=== PATIENT | male | born 1935 | race Caucasian/White ===

== ENCOUNTER 2016-11-26 11:02 | Inpatient (IN) | payer OTHER, BC ==
[~2016-11-26] VITALS: Ht 182.9 cm; Wt 99.8 kg
--- NOTE | ~2016-11-26 | EKG ---
[place] [address] [facility] [place] [address] ELECTROCARDIOGRAM REPORT Name: TORIE ETIENNE Room #: 213-P ADM IN M.R.#: [id number] Admission: 11/26/16 Attend Phys: Sheryl Trejo MD Discharge: Date of : 34 Report #: [id number] THIS REPORT FOR: //name// [facility] ED Test Date: 2016-11-26 Test Time: 11:05:39 Pat Name: TORIE ETIENNE Department: Room: 213 Gender: M Solution Analyst: JOSE : 1935 Requested By: Myesha Melendez Order Number: [id number] MD: Navneet Hernandez Measurements Intervals [place] Rate: 95 P: -27 KS: 188 QRS: -46 QRSD: 130 T: 163 QT: 440 QTc: 553 Interpretive Statements Sinus rhythm Paired ventricular premature complexes IVCD LVH with secondary repolarization abnormality Septal CT No previous ECG available for comparison Electronically Signed On 11-27-2016 11:04:02 CDT by Navneet Hernandez [email or web address] <ELECTRONICALLY SIGNED> By: Navneet Hernandez MD 11/27/16 1104 1105 1105 MD IVY Mckeon
--- NOTE | ~2016-11-26 | 2DMMODE ---
[facility] [address] [employer] [facility] [employer] [place] [address] 2 D/M-MODE ECHOCARDIOGRAM Name: TORIE ETIENNE Room #: 213-P [facility] IN ..#: [id number] Admission: 11/26/16 Attend Phys: Sheryl Trejo, Discharge: Date of : 34 Date of Service: 11/28/16 1428 Report #: [id number] THIS REPORT FOR: //name// APPROVED REPORT Study performed: 11/28/2016 13:11:46 EXAM: Comprehensive 2D, Doppler, and color-flow Echocardiogram Patient Location: Bedside Room #: 213 Blood Pressure: 110/69 mmHg HR: 79 bpm Other Information Study Quality: Adequate Indications Aortic Valve Disease Dyspnea CAD Hypertension/HDD 2D Dimensions RVDd: 43.95 mm LVEF(%): 26.78 (>50%) IVSd: 14.80 (7-11mm) LVOT Diam: 25.09 (18-24mm) LVDd: 56.50 mm PWd: 15.04 (7-11mm) Ascending Aorta: 29.28 mm LVDs: 49.37 (25-40mm) IVC: 27.00 mm Aortic Root: 30.04 mm Sosa's LVEF: 26.78 % Volumes Left Atrial Volume (Systole) Single Plane 4CH: 117.02 mL Single Plane 2CH: 139.59 mL LA ESV Index: 65.00 mL/m2 Aortic Valve AoV Peak Sunil.: 3.73 m/s AO Peak Gr.: 55.74 mmHg LV Max P.02 mmHg AO Mean Gr.: 35.98 mmHg LV Mean P.42 mmHg LV Max: 0.71 m/s AO V2 VTI: 908.40 mm LV Mean: 0.57 m/s MARGARET (VTI): 1.05 cm2 LV V1 VTI: 193.05 mm [facility] [employer] [place] [address] 2 D/M-MODE ECHOCARDIOGRAM Name: TORIE ETIENNE Room #: 213-P [facility]#: [id number] Admission: 11/26/16 Attend Phys: Sheryl Trejo, Discharge: Date of : 34 Date of Service: 11/28/16 1428 Report #: [id number] SV (LVOT): 95.43 mL Mitral Valve E/A Ratio: 1.2 MV Decel. Time: 181.86 ms MV E Max Sunil.: 1.31 m/s MV A Sunil.: 1.07 m/s MV PHT: 52.74 ms Pulmonary Valve PV Peak Sunil.: 1.31 m/s PV Peak Gr.: 6.84 mmHg Pulmonary Vein P Vein S: 54.4 m/s P Vein D: 29.2 m/s P Vein A Dur.: 17.3 m/s PVa Duration: 83 Tricuspid Valve TR Peak Sunil.: 3.29 m/s RAP Estimate: 10.00 mmHg TR Peak Gr.: 43.26 mmHg Left Ventricle The left ventricle is normal size. There is hypokinesis in the apical septal wall. There is hypokinesis in the apex wall. There is hypokinesis in the apical inferior wall. Mild to moderate concentric left ventricular hypertrophy. Left ventricular systolic function is mildly decreased. LVEF is 40-45%. Diastolic function cannot be accuratelt assessed. Right Ventricle The right ventricle is normal size. The right ventricular systolic function is normal. Atria Left atrium is dilated. Right atrium is dilated. Aortic Valve Aortic valve is calcified. No aortic regurgitation is present. Moderate aortic stenosis. Mitral Valve The mitral valve is normal in structure. Mild mitral regurgitation. No evidence of mitral valve stenosis. Tricuspid Valve The tricuspid valve is normal in structure. There is mild tricuspid [address] [place] [address] 2 D/M-MODE ECHOCARDIOGRAM Name: TORIE ETIENNE Room #: 213-P [facility] IN [facility]#: [id number] Admission: 11/26/16 Attend Phys: Sheryl Trejo, Discharge: Date of : 34 Date of Service: 11/28/16 1428 Report #: [id number] regurgitation. The right atrial pressure is estimated at 10 mmHg. There is moderate pulmonary hypertension. The estimated PAP was 53 mmHg. Pulmonic Valve The pulmonary valve is normal in structure. There is no pulmonic valvular regurgitation. Great Vessels The aortic root is normal in size. The inferior vena cava is dilated with a decrease in inspiratory collapse. Pericardium There is no pericardial effusion. <Conclusion> The left ventricle is normal size. There is hypokinesis in the apical septal wall. There is hypokinesis in the apex wall. There is hypokinesis in the apical inferior wall. LVEF is 40-45%. Left atrium is dilated. Right atrium is dilated. Aortic valve is calcified. No aortic regurgitation is present. Moderate aortic stenosis. The mitral valve is normal in structure. Mild mitral regurgitation. There is mild tricuspid regurgitation. The right atrial pressure is estimated at 10 mmHg. There is moderate pulmonary hypertension. The estimated PAP was 53 mmHg. The inferior vena cava is dilated with a decrease in inspiratory collapse. <ELECTRONICALLY SIGNED> By: Jonatan Mcdonald MD 11/28/16 1428 1428 1428 Jonatan Mcdonald MD /INF
--- NOTE | ~2016-11-26 | HC ---
[facility] [place] [address] CONSULTATION Name: TORIE ETIENNE Room #: 213-P [facility] IN .R.#: [id number] Admission: 11/26/16 Attend Phys: Sheryl Trejo MD Discharge: Date of : 34 Report #: [id number] THIS REPORT FOR: //name// CC: Sheryl Trejo [facility] DATE OF SERVICE: 11/26/2016 Cardiology Consultation INDICATION: Shortness of air. HISTORY OF PRESENT ILLNESS: This is an 81-year-old gentleman presenting with increasing shortness of breath over the past few days. He was recently hospitalized for about a week at [facility] for a GI bleed and shortness of breath. The patient reports having a cardiac catheterization performed, did not undergo a stent placement. He did receive blood transfusions, but they did not find the cause of his GI bleed. He offers no complaints of angina, fever or diarrhea. He has noticed increased swelling of his lower extremities. PAST MEDICAL HISTORY: Remote history of CABG in 1998. Reports having cardiac catheterization at [facility], no stent was placed. Has a history of valvular heart disease. Follows with Dr. Dominick Hamlin at [facility]. History of hypertension, hypercholesterolemia, edema, GI bleed, PVD. ALLERGIES: PENICILLIN AND VICODIN. CURRENT MEDICATIONS: Include Lipitor 80 mg, Cartia 240 mg, finasteride, levothyroxine, Plavix 75 mg daily, ____ terazosin, cilostazol, Zetia and Nexium. SOCIAL HISTORY: Denies tobacco use. FAMILY HISTORY: Negative for premature CAD. REVIEW OF SYSTEMS: A full 10-point review of systems performed. Only the pertinent positives and negatives are described in the HPI. PHYSICAL EXAMINATION: VITAL SIGNS: Blood pressure is 110/70, heart rate is 80 beats per minute. GENERAL APPEARANCE: This is an overweight male in mild respiratory distress. HEAD AND EYES: Normocephalic. Sclerae are anicteric. ENT: Oral mucosa moist. NECK: Supple. LUNGS: Bibasilar crackles. [facility] [address] [place] [address] CONSULTATION Name: TORIE ETIENNE Room #: 213-P ADM IN ..#: [id number] Admission: 11/26/16 Attend Phys: Sheryl Trejo MD Discharge: Date of : 34 Report #: [id number] CARDIAC: Regular rate and rhythm, 2/6 systolic murmur. ABDOMEN: Protuberant, soft, nontender. EXTREMITIES: No major joint deformities, 3+ bilateral lower extremity edema. ECG reveals sinus rhythm, anteroseptal WA, LVH with repolarization abnormalities. LABORATORY VALUES: White count is 8.7, hemoglobin is 8.2. Sodium is 138, creatinine is 1.2. First troponin is positive at 2.08. ProBNP is elevated at 27,000. ASSESSMENT AND PLAN: 1. 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 We will need an echo to evaluate. Would start the patient on IV diuresis. Strict I's and O's should be maintained. 2. CAD/CABG/non-ST elevation WA, the troponin elevation may be a result of hypoxia/heart failure, would like to obtain the results of the cardiac catheterization apparently performed at [facility]. 3. Gastrointestinal bleed, hemoglobin is stable at this time. 4. ____, continue with medications. 5. Hypercholesterolemia, continue with statins. 6. Edema, continue with diuresis. I did discuss to the patient and his the importance of maintaining a low salt diet. Thank you for allowing me to participate in the care of your patient. <ELECTRONICALLY SIGNED> By: Navneet Hernandez MD 11/28/16 0739 1156 2257 Navneet Hernandez MD /nt
--- NOTE | ~2016-11-26 | HC ---
[facility] [place] [address] CONSULTATION Name: TORIE ETIENNE Room #: 213-P ADM IN M.R.#: [id number] Admission: 11/26/16 Attend Phys: Sheryl Trejo MD Discharge: Date of : 34 Report #: [id number] THIS REPORT FOR: //name// CC: Sheryl Rehman [facility] DO Navneet Hernandez MD DATE OF SERVICE: 11/27/2016 HISTORY OF PRESENT ILLNESS: The patient is an 81-year-old male with multiple medical problems including history of coronary artery disease status post CABG, valvular heart disease and hypertension. He apparently was [facility] [place] He is a fair historian. His family is present to help with his history today. It appears he received at least 4-5 units of packed cells during that hospitalization. He did not undergo an EGD or colonoscopy and in fact has never had one in the past apparently due to him being too unstable at the time. He does report dark stools He denies any abdominal pain. His weight has been stable. There is no family history of colon cancer. He has been on Plavix, which has now been held. He was on Nexium apparently at home as well as Carafate. He does have a history of congestive heart failure as well. His hemoglobin on admission was 8.2 yesterday. Today it is 7.8. He is currently on 3 liters of nasal canula oxygen. He is usually not on oxygen at home. He does report some shortness of breath, but this is improving at this time as well as his lower extremity edema. PAST MEDICAL AND SURGICAL HISTORY: Coronary artery disease, congestive heart failure, previous history of ND, coronary artery bypass, valvular heart disease, history of sleep apnea, hypertension, GI bleed requiring blood transfusions recently, previous fracture of his right leg, history of bronchitis and sleep apnea. MEDICATIONS ON ADMISSION: Diltiazem, Hytrin, atorvastatin, finasteride, Synthroid, Plavix, metoprolol, Zetia, ____ Nexium and Carafate. ALLERGIES: To PENICILLIN. REVIEW OF SYSTEMS: As per HPI. FAMILY HISTORY: Negative for colon cancer. Again, the patient has never had a colonoscopy before. SOCIAL HISTORY: Used to smoke cigarettes but denies any tobacco or alcohol use at this time. [facility] [address] [place] [address] CONSULTATION Name: TORIE ETIENNE Room #: 213-P [facility] IN [facility]#: [id number] Admission: 11/26/16 Attend Phys: Sheryl Trejo MD Discharge: Date of : 34 Report #: [id number] PHYSICAL EXAMINATION: VITAL SIGNS: Temperature is 97.9, pulse 78, blood pressure is 102/73 and respiratory rate is 18. GENERAL: He is alert and oriented x 3, in no acute distress. HEENT: Sclerae nonicteric. Oropharynx clear. NECK: Supple. CARDIOVASCULAR: Systolic ejection murmur noted, regular rhythm. CHEST: With decreased breath sounds bilaterally. ABDOMEN: Soft. He is nontender and nondistended, normoactive bowel sounds. EXTREMITIES: Pitting edema +1 in the lower extremities bilaterally. LABORATORY DATA: Sodium 140, potassium 3.3, chloride 103, bicarbonate 25, BUN 32, creatinine is 1.0, AST 25, total bilirubin 0.3, alkaline phosphatase 113, ALT is 38, total protein 5.3, albumin 2.7. Troponin 2.08. BNP is 27,599. WBC is 8.0, hemoglobin 7.8, MCV 85.8, platelet count 166. Chest x-ray yesterday left basilar infiltrate and small effusion. Cardiomegaly with mild edema. ASSESSMENT AND PLAN: Anemia, recent history of gastrointestinal bleed requiring transfusions at different facility. Would recommend proceeding with an EGD and possible colonoscopy in the near future; however, obviously the patient has multiple medical problems. He is currently on 3 liters. He is high risk for sedation at this time. I had a long discussion with the patient and his family. I would recommend considering endoscopy in the near future if his pulmonary function improves and if cardiology agrees with procedures. In the meantime, continue to hold anticoagulation therapy, continue to monitor hemoglobin closely. We will discontinue his Pepcid that he is on currently and start Protonix b.i.d. Thank you for allowing me to participate in his care. <ELECTRONICALLY SIGNED> By: Mac Velazquez MD 11/28/16 1132 1500 [id number] Mac Velazquez MD /nt
--- NOTE | ~2016-11-26 | EKG ---
[address] [place] [address] ELECTROCARDIOGRAM REPORT Name: TORIE ETIENNE Room #: 213-[facility] IN M.R.#: [id number] Admission: 11/26/16 Attend Phys: Sheryl Trejo MD Discharge: 11/28/16 Date of : 34 Report #: [id number] THIS REPORT FOR: //name// [facility] Test Date: 2016-11-28 Test Time: 15:46:18 Pat Name: TORIE ETIENNE Department: Room: 213 P Gender: M Medical Photographer: Regina DOYLE : 1935 Requested By: Sheryl Trejo Order Number: [id number] MD: Mainor Davey Measurements Intervals [place] Rate: 102 P: OR: QRS: 107 QRSD: 196 T: 264 QT: 427 QTc: 557 Interpretive Statements Atrial fibrillation With intermittent left bundle branch block aberrancy ST and T wave abnormality, cannot reliably assess. Recommend repeat tracing in the absence of baseline artifact Compared to ECG 11/26/2016 11:05:39 Sinus rhythm no longer present Electronically Signed On 11-29-2016 8:34:38 CDT by Mainor Davey [email or web address] <ELECTRONICALLY SIGNED> By: Mainor Davey MD, [facility] 11/29/16 0834 1546 1546 Mainor Davey MD, [facility] /EPI
--- NOTE | ~2016-11-26 | H ---
[facility] [place] [address] HISTORY AND PHYSICAL Name: TORIE ETIENNE Room #: 213-P ADM IN M.R.#: [id number] Admission: 11/26/16 Attend Phys: Sheryl Trejo MD Discharge: Date of : 34 Report #: [id number] THIS REPORT FOR: //name// CC: Sheryl Sue Rehman REASON FOR PRESENTATION: Shortness of breath. HISTORY OF PRESENT ILLNESS: This is an 81-year-old with extensive past medical history, including and not limited to, hypertension, coronary artery disease, hypothyroidism and status post CABG. He tells me that he got recently discharged from [facility] after being treated for what seems to be a GI bleeding. He is not really sure about the details of his hospitalizations. He is also known to have CABG. He is also known to have bad valves, as he stated. He does not recall the details of those medical problems. He tells me that he is not aware of any history of heart failure. He started to get shortness of breath few days before his presentation. This was associated with extensive bilateral lower extremity edema and dyspnea on exertion. He also had orthopnea. No reported loss of consciousness. No urinary symptoms. He tells me that he is not strict with his salt and his water intake. On presentation to the emergency room, the patient was found to be in pulmonary edema with extensive fluid retention and bilateral lower extremity edema with mildly elevated troponin. His BNP was significantly elevated. He will be admitted for further evaluation and management, including IV diuresis. PAST MEDICAL HISTORY: 1. Hypertension. 2. Coronary artery disease. 3. Hypothyroidism. 4. Status post CABG. 5. Right ankle surgery. 6. Leaky valves. 7. Ulcer of the right foot. SOCIAL HISTORY: No drug or alcohol abuse. He lives with his . ALLERGIES: PENICILLIN. MEDICATIONS: 1. Cartia. 2. Finasteride. 3. Levothyroxine. 4. Plavix. 5. Metoprolol. 6. Terazosin. 7. Cilostazol. 8. Nexium. [facility] [address] [place] [address] HISTORY AND PHYSICAL Name: JAIMIETORIE Room #: 213-P [facility] IN [facility].#: [id number] Admission: 11/26/16 Attend Phys: Sheryl Trejo MD Discharge: Date of : 34 Report #: [id number] FAMILY HISTORY: Significant for hypertension. REVIEW OF SYSTEMS: GENERAL: No fever or chills. CARDIOVASCULAR: Significant for chest pain, orthopnea, PND, lower extremity edema. PULMONARY: No cough or hemoptysis. GASTROINTESTINAL: Significant for some nausea, but no vomiting. GENITOURINARY: No frequency, no urgency. MUSCULOSKELETAL: Extensive bilateral lower extremity swelling. PHYSICAL EXAMINATION: VITAL SIGNS: Blood pressure 109/74, temperature was 36.9 and O2 sat is 97 on 2 liters via nasal cannula. HEAD AND NECK: Elevated jugular venous pressure. CHEST: Decreased air entry bilaterally. CARDIOVASCULAR: Positive for systolic murmurs on the apical area and aortic area. There is an S3 gallop. ABDOMEN: Soft, nontender, with no hepatosplenomegaly. LOWER EXTREMITIES: Extensive bilateral lower extremity edema. LABORATORY DATA: Laboratory values reviewed. Hemoglobin is 8.2.. Sodium is 136, potassium is 3.2, BUN of 30, creatinine is 1.2 and glucose is elevated at 175. Troponin is mildly elevated at 2.0. ASSESSMENT, IMPRESSION AND PLAN: 1. Decompensated heart failure. 2. Pulmonary edema. 3. Hyperkalemia. 4. Coronary artery disease. 5. Hypothyroidism. 6. Hypertension. 7. Admission. 8. Strict input and output. 9. Aggressive IV diuresis. 10. Fluid restriction. 11. Salt restrictions. 12. Obtain [facility]'s records. 13. He has a mildly elevated troponin. I do not think that this is an acute coronary event and I will hold on any anticoagulation until I obtain further details about his gastrointestinal bleeding. 14. Resume his home medications, including his levothyroxine. However, we will hold the Plavix until we get the records from [facility]'s Facility. 15. Replace potassium. [address] [address] HISTORY AND PHYSICAL Name: TORIE ETIENNE Room #: 213-P ADM IN M.R.#: [id number] Admission: 11/26/16 Attend Phys: Sheryl Trejo MD Discharge: Date of : 34 Report #: [id number] 16. Cardiac consultations. 17. Echo. <ELECTRONICALLY SIGNED> By: Sheryl Trejo MD 11/27/16 0738 1209 1257 Sheryl Trejo MD /nt
[2016-11-26 11:03] VITALS: BP 109/74
[2016-11-26 11:18] LABS: HEMOGLOBIN 8.2 gm/dL (14.0-18.0); MANUAL DIFF YES; MCH 27.4 pg (26.0-34.0); MCHC 31.4 g/dL (28.0-37.0); MCV 87.4 fL (80.0-100.0); PLATELET COUNT 186 thou/uL (150-400); RBC 2.98 mil/uL (4.50-6.00); RDW 18.8 % (10.5-14.5); WBC 8.7 thou/uL (4.0-11.0)
[2016-11-26 11:21] LABS: POC CA IONIZED 4.2 mg/dL (4.5-5.3); POC HEMOGLOBIN 8.8 g/dL (14.0-18.0); POC POTASSIUM 3.2 mmol/L (3.5-5.1)
[2016-11-26 11:28] LABS: CALCIUM 7.7 mg/dL (8.5-10.1); CREATININE 1.2 mg/dL (0.7-1.3); POTASSIUM 3.2 mmol/L (3.5-5.1)
[2016-11-26 11:41] LABS: TROPONIN-I 2.08 ng/mL (<0.04-0.07)
[2016-11-26 11:43] LABS: TOTAL CELL COUNT 100
[2016-11-26 11:47] LABS: ANISOCYTOSIS 3+; POIKILOCYTOSIS 1+; POLYCHROMASIA 1+
[2016-11-26 12:45] VITALS: BP 113/63
[2016-11-26] MEDS ORDERED: DILTIAZEM ER240 M1 PO (12:51)
[2016-11-26] MEDS ORDERED: HYTRIN 2MG CAPSU2 M1 PO (12:52)
[2016-11-26] MEDS ORDERED: LEVOTHYROXINE 0.15MG PO (12:52)
[2016-11-26] MEDS ORDERED: ATORVASTATIN CA80 MG PO (12:52)
[2016-11-26] MEDS ORDERED: FINASTERIDE5 MG PO (12:52)
[2016-11-26] MEDS ORDERED: PLAVIX 75 MG TA75 M1 PO (12:52)
[2016-11-26] MEDS ORDERED: METOPROLOL SUCC50 MG PO (12:53)
[2016-11-26] MEDS ORDERED: ZETIA10 MG PO (12:53)
[2016-11-26] MEDS ORDERED: NEXIUM40 MG PO (12:53)
[2016-11-26] MEDS ORDERED: CILOSTAZOL 100100 M1 PO (12:53)
[2016-11-26] MEDS ORDERED: CARAFATE 1 GM TA1 G1 PO (12:54)
[2016-11-26 13:00] VITALS: BP 120/71
[2016-11-26 15:30] VITALS: BP 112/66
[2016-11-26 19:55] VITALS: BP 115/82
[2016-11-26 23:50] VITALS: BP 114/57
[2016-11-27 03:29] VITALS: BP 113/70
[2016-11-27 04:19] LABS: ALBUMIN 2.7 g/dL (3.4-5.0); CALCIUM 7.3 mg/dL (8.5-10.1); POTASSIUM 3.1 mmol/L (3.5-5.1); TOTAL BILIRUBIN 0.5 mg/dL (<0.1-1.0); TOTAL PROTEIN 5.3 g/dL (6.4-8.2)
[2016-11-27 04:21] LABS: HEMATOCRIT 24.2 % (42.0-52.0); HEMOGLOBIN 7.8 gm/dL (14.0-18.0); MCH 27.5 pg (26.0-34.0); MCV 85.8 fL (80.0-100.0); RBC 2.82 mil/uL (4.50-6.00); RDW 18.7 % (10.5-14.5)
[2016-11-27 04:26] VITALS: BP 88/54
[2016-11-27 07:15] VITALS: BP 116/67
[2016-11-27 11:30] VITALS: BP 102/73
[2016-11-27 16:00] VITALS: BP 129/76
[2016-11-27 19:43] VITALS: BP 123/81
[2016-11-28 03:00] LABS: HEMATOCRIT 25.1 % (42.0-52.0); MCH 27.4 pg (26.0-34.0); MCHC 31.9 g/dL (28.0-37.0); MCV 85.7 fL (80.0-100.0); RBC 2.93 mil/uL (4.50-6.00); WBC 8.6 thou/uL (4.0-11.0)
[2016-11-28 03:16] LABS: ALBUMIN 2.7 g/dL (3.4-5.0); CALCIUM 7.2 mg/dL (8.5-10.1); CREATININE 1.1 mg/dL (0.7-1.3); PHOSPHORUS 4.2 mg/dL (2.5-4.9)
[2016-11-28 03:48] VITALS: BP 115/73
[2016-11-28 07:20] VITALS: BP 110/69
[2016-11-28 11:30] VITALS: BP 161/62
== END 2016-11-28 16:25 | DRG 177 ==
LOC: ER 11:02 → EROBS 11:55 → 2N 11:55
PROVIDERS: Emergency Medicine; Hospitalist
DX: J69.0 Pneumonitis due to inhalation of food and vomit (principal); I50.23 Acute on chronic systolic (congestive) heart failure; I21.4 Non-ST elevation (NSTEMI) myocardial infarction; E43 Unspecified severe protein-calorie malnutrition; K92.2 Gastrointestinal hemorrhage, unspecified; J81.1 Chronic pulmonary edema; D62 Acute posthemorrhagic anemia; I49.01 Ventricular fibrillation; J42 Unspecified chronic bronchitis; I11.0 Hypertensive heart disease with heart failure; I73.9 Peripheral vascular disease, unspecified; E78.00 Pure hypercholesterolemia, unspecified; E03.9 Hypothyroidism, unspecified; Z96.661 Presence of right artificial ankle joint; E87.5 Hyperkalemia; I25.10 Atherosclerotic heart disease of native coronary artery without angina pectoris; E78.5 Hyperlipidemia, unspecified; L89.309 Pressure ulcer of unspecified buttock, unspecified stage; I25.5 Ischemic cardiomyopathy; I25.2 Old myocardial infarction; Z79.899 Other long term (current) drug therapy; Z95.5 Presence of coronary angioplasty implant and graft; Z88.0 Allergy status to penicillin; Z87.891 Personal history of nicotine dependence; Z95.1 Presence of aortocoronary bypass graft; Z88.6 Allergy status to analgesic agent; Z82.49 Family history of ischemic heart disease and other diseases of the circulatory system
CPT/HCPCS: 10194